=== PATIENT | female | born 1995 | race Two or more races ===

== ENCOUNTER 2024-04-27 11:04 | Emergency (ER) | payer OTHER ==
[~2024-04-27] VITALS: Ht 160 cm; Wt 61.2 kg
[2024-04-27 11:50] VITALS: BP 105/69; O2SAT 99
[2024-04-27] MEDS ORDERED: ONDANSETRON HCL 2 MG/ML VIAL IV STA (13:24)
[2024-04-27] MEDS ORDERED: ONDANSETRON HCL 2 MG/ML VIAL ONE (13:31)
[2024-04-27 13:51] LABS: HEMOGLOBIN 13.2 g/dL (12.0-15.00); MEAN CELL VOLUME 88.8 fL (80.00-100.00); MEAN CORPUSCULAR HEMOGLOBIN 29.3 pg (27.00-32.0); PLATELET COUNT 306 K/uL (150-450); RED CELL DISTRIBUTION WIDTH 13.4 % (11.5-14.5)
[2024-04-27 14:15] LABS: PH,URINE 6.5 (5.0-8.0); URINE APPEARANCE Clear; URINE BILIRRUBIN Negative (NEGATIVE); URINE BLOOD Negative; URINE COLOR Yellow; URINE GLUCOSE Negative (NEGATIVE); URINE KETONE 15 (NEGATIVE); URINE LEUKOCYTE Negative; URINE NITRATE Negative; URINE PROTEIN Negative (NEGATIVE); URINE UROBILINOGEN 0.2 E.U./dl
[2024-04-27 14:17] LABS: URINE BACTERIA 204.2 uL (0.0-1933); URINE EPITHELIAL CELLS 4.2 uL (0.0-38.8); URINE WBC 2.5 uL (0.0-23.2)
[2024-04-27 14:30] LABS: CALCIUM 9.3 mg/dL (8.5-10.1); CREATININE SERUM 0.6 mg/dL (0.55-1.02); GFR 119.92; POTASSIUM 3.99 mEq/L (3.5-5.1)
[2024-04-27 14:32] LABS: URINE RBC 1.3 uL (0.0-20.8)
== END 2024-04-27 16:59 | disposition home or self-care (01) ==
LOC: ER 11:06 → EDBD 11:57 → ER 16:59
PROVIDERS: General Practice
DX: O20.9 Hemorrhage in early pregnancy, unspecified (principal); O99.611 Diseases of the digestive system complicating pregnancy, first trimester; K92.89 Other specified diseases of the digestive system; R19.7 Diarrhea, unspecified; Z3A.08 8 weeks gestation of pregnancy